=== PATIENT | female | born 1995 | race Caucasian/White ===

== ENCOUNTER 2023-11-27 21:51 | Emergency (ER) | payer BC, SELFPAY ==
[2023-11-27 21:54] VITALS: BP 131/102
[2023-11-27 22:24] VITALS: BMI 24.4
[2023-11-27 22:40] VITALS: BP 114/77
[2023-11-27 22:45] LABS: % Basophils 0.6 % (0-2); % Eosinophils 0.9 % (0-6); % Immature Granulocytes 0.2 % (0-0.5); % Lymphocytes 27.7 % (20.5-51.1); % Monocytes 5.7 % (1.7-9.3); % Neutrophils 64.9 % (42.2-75.2); Absolute Basophils 0.1 10^3/uL (0-0.2); Absolute Eosinophils 0.1 10^3/uL (0-0.7); Absolute Lymphocytes 2.2 10^3/uL (1.2-3.4); Absolute Monocytes 0.5 10^3/uL (0.1-0.6); Absolute Neutrophils 5.2 10^3/uL (1.4-6.5); Hemoglobin 14.8 g/dL (12.0-16.0); Mean Corpuscular Hgb 31.2 pg (27.0-31.0); Mean Corpuscular Volume 84.4 fL (81.0-99.0); Nucleated Red Blood Cells % 0 %; Platelet Count 334 10^3/uL (130-400); Red Blood Cell Count 4.74 10^6/uL (4.20-5.40); White Blood Cell Count 8.1 10^3/uL (4.8-10.8)
[2023-11-27 23:00] VITALS: BP 116/78
[2023-11-27 23:01] LABS: ALT (SGPT) 19 U/L (0-35); AST (SGOT) 21 U/L (14-36); Albumin 5.1 g/dl (3.5-5.0); Alkaline Phosphatase 59 U/L (38-126); Blood Urea Nitrogen 12 mg/dl (7-17); Calcium 10.3 mg/dl (8.4-10.2); Carbon Dioxide 22 mmol/L (22-30); Chloride 101 mmol/L (98-107); Estimated Creatinine Clearance 89 ml/min; Glucose 104 mg/dl (70-99); Potassium 3.8 mmol/L (3.5-5.1); Sodium 135 mmol/L (135-145); Total Bilirubin 0.6 mg/dl (0.2-1.3); Total Protein 7.9 g/dl (6.3-8.2); eGFR > 60.00
[2023-11-27 23:12] LABS: Troponin I < 0.012 ng/ml
--- NOTE | 2023-11-27 23:15 | ED.GENMED ---
History of Present Illness
General
Chief Complaint: Heart Rate Problem
Source: patient
Time Seen by Provider: 11/27/23 22:33
Travel History
Have you had any contact with someone who has COVID-19?: No
Do you have any symptoms of coronavirus? Fever > 100 degrees, chills, cough, shortness of breath, sore throat, loss of taste or smell, muscle aches, or headache?: No
History of Present Illness
History of Present Illness:
28-year-old female presenting to the emergency department for evaluation of palpitations that have been ongoing for a while now but tonight seemed worse than normal. She is scheduled to see race relations adviser on December 09 for this. She notes she had an EKG
done at her primary care's office about a month ago which showed some PVCs. Patient has no other symptoms associated with this including headaches, visual changes, abdominal pain, nausea, vomiting. Patient notes that she has been told that this
could potentially be POTS by a few medical providers previously. Social history was noncontributory. Patient does note that she is currently undergoing through fertility workup, had a miscarriage a couple of weeks ago. No other concerns
Past History
Past History
ED Past Medical History: None
ED Past Surgical History: Tonsilectomy
Social History
Tobacco: Non-smoker
Alcohol: None
Drug: None
Personal:
Living: with family
Review of Systems
Review of Systems
All Other Systems: ROS reviewed and negative except as documented in HPI and ROS
Phy Exam
Physical Exam
Physical Exam:
GENERAL: Alert , in no apparent distress
EYE: conjunctiva clear
NECK: Supple,
ENT: o/p clr, mmm.
CARDIAC: Regular rate and rhythm
LUNGS: Clear breath sounds bilaterally, no acute respiratory distress, no wheezes/rales/rhonchi
NEUROLOGICAL: Alert and oriented
SKIN: Warm and dry, skin intact.
MUSCULOSKELETAL: well perfused.
PSYCH: Normal and appropriate interaction.
Scores
Heart Failure Risk
Heart Failure Risk Score: Not Applicable
Heart Score for Chest Pain Patients
STEMI patient?: Not applicable
Withdrawal Assessment of Alcohol
Withdrawal Assessment Completed?: Not applicable
Course
Orders/Labs/Results
Orders:
Orders
11/27/23 21:56
EKG [Electrocardiogram (*1)] Urgent
Reason for Study: Palpitations
EKG- Treatment ONCE
11/27/23 22:34
Complete Blood Count/With Diff Urgent
Comprehensive Metabolic Panel Urgent
Troponin I Urgent
11/27/23 22:36
Add On- LAB Urgent
Tests Added?: TSH
11/27/23 22:46
TSH Urgent
Comment: ADD ON
Abnormal Lab Results
11/27/23
22:34
MCH 31.2 H pg
(27.0-31.0)
Glucose 104 H mg/dl
(70-99)
Calcium 10.3 H mg/dl
(8.4-10.2)
Albumin 5.1 H g/dl
(3.5-5.0)
11/27/23 22:34
11/27/23 22:34
Vital Signs
Initial and Last Documented VS:
Initial Vital Signs
Temp Pulse Resp BP Pulse Ox
97.6 F 113 18 131/102 100
11/27/23 21:54 11/27/23 21:54 11/27/23 21:54 11/27/23 21:54 11/27/23 21:54
Last Documented Vital Signs
Temp Pulse Resp BP Pulse Ox
97.6 F 84 12 116/78 96
11/27/23 21:54 11/27/23 23:15 11/27/23 23:15 11/27/23 23:00 11/27/23 23:15
MDM/Problems Addressed
Differential Diagnosis Includes:
POTS, cardiac dysrhythmia, electrolyte disturbance, thyroid disorder
MDM/Problems Addressed:
28-year-old female presenting emergency department for evaluation of intermittent palpitations, tonight they were worse than usual. On arrival to the emergency department symptoms mostly resolved. Patient does states she feels as if it could be
POTS that she does note symptoms seem to be worse when going from sitting to standing. No fevers or infectious symptoms. No symptoms to be suggestive of ACS. Will check labs. Monitor vital signs on telemetry. Anticipate continued outpatient
management.
*Pulse Oximetry
Patient hypoxic: no
*EKG
Interpreted by ED Provider?: Yes
Comparison EKG: no changes
Heart Rate: 83
Rate: normal
Rhythm: sinus arrhythmia
Ischemia: no ischemia
*Cloth Reeler Interpretation
Rate: normal
Rhythm: sinus arrhythmia
*Critical Care Note
Total Time (30-74mins, 75-104mins- exclusive of procedures): Not Applicable
Comment
Comment:
Patient's lab work is unremarkable. Stable for discharge home and outpatient management with primary care provider and race relations adviser. Did discuss potentially initiating a beta-cassandra however given patient's already low blood pressure did not want
to further worsen any orthostasis or hypotension.
ED Attending Note
-
Portions of this chart may have been created with voice recognition software.� Occasional wrong word or��sound alike� substitutions may have occurred due to the inherent limitations of voice recognition software.
Discharge Plan
Departure
Patient Disposition: Home (Routine Discharge)
Date of Disposition: 11/27/23
Time of Disposition: 23:15
Patient with high blood pressure during this ER visit?: No
Discharge Problem:
Palpitations
Instructions: Palpitations (DC)
Interventions
Interventions:
*Risk Screen - Suicide Last Done: 11/27/23 21:54
*General Assessment Last Done: 11/27/23 21:54
*Neglect/Abuse Screening Last Done: 11/27/23 21:56
ED- Fall Risk Assessment Last Done: 11/27/23 23:22
*ED COVID-19 Vaccine History Last Done: 11/27/23 22:24
*Nursing Disposition Last Done: 11/27/23 23:22
ED- Cardiac Assessment Last Done: 11/27/23 22:24
ED- Pulmonary Assessment Last Done: 11/27/23 22:24
Discharge Date and Time
Discharge Date/Time: 11/27/23 23:30
Print Language: MALAY
[2023-11-27 23:42] LABS: TSH 3.33 uIU/ml (0.47-4.68)
== END 2023-11-27 23:30 | disposition home or self-care (01) ==
LOC: EMR 21:51
PROVIDERS: Physician Assistant Medical; EMERGENCY PHYSICIAN Emergency Medicine; FAMILY PHYSICIAN Nurse Practitioner Family
DX: R00.2 Palpitations (principal)
CPT/HCPCS: 99284; 80053; 84443; 84484; 85025; 93005